=== PATIENT | female | born 1995 | race African-American/Black ===

== ENCOUNTER 2019-03-05 03:04 | Emergency (ER) | payer BC ==
[2019-03-05] MEDS ORDERED: Dexamethasone 4 mg/ml Vial ONE (03:12)
== END 2019-03-05 04:10 | disposition home or self-care (01) ==
LOC: BURERS 03:04
DX: J45.901 Unspecified asthma with (acute) exacerbation (principal); Z79.51 Long term (current) use of inhaled steroids
CPT/HCPCS: 94640; 96372; J1100; J7620

== ENCOUNTER 2019-04-05 05:04 | Emergency (ER) | payer BC ==
[2019-04-05] MEDS ORDERED: methylPREDNISolone Sod Succ/PF 125 MG/2 ML VIAL ONE (05:15)
[2019-04-05] MEDS ORDERED: Acetaminophen 325 MG TAB ONE (05:31)
[2019-04-05] MEDS ORDERED: Albuterol Sulfate 2.5 mg/0.5 ml Neb ONE (06:12)
[2019-04-05] MEDS ORDERED: Albuterol Sulfate 2.5 mg/3 ml Neb ONE ×2 (07:08→07:51)
== END 2019-04-05 08:22 | disposition home or self-care (01) ==
LOC: BURERS 05:04
DX: J45.901 Unspecified asthma with (acute) exacerbation (principal); Z79.51 Long term (current) use of inhaled steroids; Z79.899 Other long term (current) drug therapy
CPT/HCPCS: 96365; 96375; J2930; J7611; J7620

== ENCOUNTER 2019-08-30 19:29 | Emergency (ER) | payer BC ==
[2019-08-30] MEDS ORDERED: Albuterol Sulfate 1.25 MG/3 ML NEB ONE ×2 (19:45→20:01)
[2019-08-30] MEDS ORDERED: methylPREDNISolone Sod Succ/PF 125 MG/2 ML VIAL ONE (19:45)
[2019-08-30] MEDS ORDERED: Albuterol Sulfate 2.5 mg/0.5 ml Neb ONE (20:45)
--- NOTE | 2019-08-30 21:20 | RAD ---
Portable frontal chest radiograph: 08/30/2019 COMPARISON: 03/17/2015 HISTORY: Dyspnea FINDINGS: Lungs are clear. Heart and mediastinal contours appear within normal limits. IMPRESSION: No acute findings.
[2019-08-30] MEDS ORDERED: Magnesium 2 GM/50 ML BAG (IN WATER) ONE (21:43)
[2019-08-30] MEDS ORDERED: Acetaminophen 500 MG TAB ONE (21:47)
[2019-08-30 21:59] LABS: ALT (SGPT) 11 U/L (8-55); AST (SGOT) 12 U/L (5-34); Albumin 4.5 g/dL (3.5-5.0); Alkaline Phosphatase 62 U/L (40-110); Anion Gap 15 mmol/L (10-20); BUN (Urea Nitrogen) 5 mg/dL (7.0-18.7); Bilirubin, Total 0.4 mg/dL (0.2-1.2); Calc. Creatinine Clearance 0 mL/min (70-130); Calcium 9.1 mg/dL (7.8-10.44); Carbon Dioxide 20 mmol/L (22-29); Chloride 111 mmol/L (98-107); Estimated GFR-MDRD Greater than 90; Globulin 3.2 g/dL (2.4-3.5); Glucose 112 mg/dL (70-105); Potassium 3.5 mmol/L (3.5-5.1); Protein, Total 7.7 g/dL (6.0-8.3); Sodium 142 mmol/L (136-145)
[2019-08-30 22:09] LABS: #Eosinphils 0.4 thou/uL (0.0-0.7); #Lymphocytes 0.5 thou/uL (1.20-3.40); #Monocytes 0.3 thou/uL (0.11-0.59); #Neutrophils 6.9 thou/uL (1.40-6.50); %Basophils 0.6 % (0.0-1.0); %Eosinophils 5.3 % (0.0-10.0); %Lymphocytes 5.9 % (21.0-51.0); %Monocytes 3.1 % (0.0-10.0); %Neutrophils 85.1 % (42.0-75.0); Hemoglobin 11.7 g/dL (12.0-16.0); Hypochromia SLIGHT = 6-15 cells (100X) (0-5/hpf); MDiff Complete? YES; Mean Corpuscular HGB CONC 29.9 g/dL (32.0-36.0); Mean Corpuscular Hemoglobin 23.8 pg (27.0-31.0); Mean Corpuscular Volume 79.4 fL (78.0-98.0); Mean Platelet Volume 10.1 fL (7.4-10.4); Platelet Count 234 thou/uL (130-400); RBC Distribution Width 12.9 % (11.5-14.5); White Blood Cell (WBC) Count 8.1 thou/uL (4.8-10.8)
== END 2019-08-30 23:29 | disposition short-term general hospital (02) ==
LOC: BURERS 19:29
DX: J45.902 Unspecified asthma with status asthmaticus (principal); Z79.899 Other long term (current) drug therapy
CPT/HCPCS: 71045; 80053; 85025; 94640; 94760; 96361; 96365; 96372; J2930; J3475; J7611; J7620